=== PATIENT | male | born 1995 | race African-American/Black ===

== ENCOUNTER 2018-04-13 16:00 | Emergency (ER) | payer SELFPAY ==
[~2018-04-13] VITALS: Ht 175.3 cm; Wt 80.0 kg
[2018-04-13 16:54] VITALS: BP 126/85
== END 2018-04-13 18:05 | disposition left against medical advice (07) ==
LOC: ER 16:22
DX: Z53.21 Procedure and treatment not carried out due to patient leaving prior to being seen by health care provider (principal); J45.909 Unspecified asthma, uncomplicated